=== PATIENT | male | born 1995 | race Caucasian/White ===

== ENCOUNTER 2017-05-14 22:26 | Emergency (ER) | payer OTHER ==
[~2017-05-14] VITALS: Ht 175.3 cm; Wt 88.2 kg
[2017-05-14 22:32] VITALS: TEMP 36.8; Ht 175.3 cm; Wt 88.2 kg
[2017-05-14] MEDS ORDERED: XYLOCAINE 1%/SOD BICARB 20 ML VIAL INFIL ONE (22:39)
[2017-05-14] MEDS ORDERED: LIDOCAINE/EPINEPHRINE 1% 20 ML VIAL INFIL ONE (22:45)
--- NOTE | 2017-05-14 22:53 | EMERGENCY ROOM VISIT NOTE ---
ED Visit Note First contact with patient: 22:34 CHIEF COMPLAINT: Left buttock laceration HISTORY OF PRESENT ILLNESS: This 21-year-old patient presents to the emergency department with friend after cutting the left buttock when he fell skiing. The bleeding has not stopped. Denies weakness or numbness of the extremity. patient has full range of motion of the extremity The patient rates the pain as mild and 2/10. The patient denies any other injuries. The patient's tetanus shot is up to date. REVIEW OF SYSTEMS: A 6 system review of systems was completed with positives and pertinent negatives listed in the HPI. ALLERGIES: None MEDICATIONS: None PMH: None SOCIAL HISTORY: No drug use PHYSICAL EXAM: Vital Signs: Reviewed Nurse's notes, vital signs stable. GENERAL : Pleasant male, in no acute distress, well developed, well nourished. SKIN: There is a 4 cm long laceration on the left buttock. The edges gape apart with traction. There is no foreign material in the wound and it looks clean. There is minimal bleeding. No deep structures such as tendons, bones, or significant blood vessels are seen in the base of the wound. Extension and flexion of the left leg extremity is full and strong. Full range of motion of the extremity. Capillary refill less than 2 seconds. Normal sensation to light and sharp touch. EMERGENCY DEPARTMENT COURSE: I examined the patient. Using sterile technique the wound was cleansed with Betadine. 4 ml of 1% buffered lidocaine with epi was used to anesthetize the patient. The area was sterilely draped. Once the patient was anesthetized, the wound was copiously irrigated under pressure with sterile saline. The wound was explored and there were no deep structures injured. The laceration was repaired using 13 romeo. The patient tolerated the procedure well. Hemostasis was achieved. The area was cleaned with sterile saline and dressed with bacitracin ointment and bandage. The patient was discharged home in good condition. Differential diagnosis includes laceration, tendon injury, vascular injury and other etiologies were considered. DIAGNOSIS: Left buttock laceration DISCHARGE INSTRUCTIONS & TREATMENT: As below Vital Signs Date Time Temp Pulse Resp B/P (MAP) Pulse Ox O2 Delivery O2 Flow Rate FiO2 05/14/17 22:32 36.8 97 18 133/68 97 Room Air Departure Information Impression Primary Impression: Laceration of left buttock Dispostion Home / Self-Care Condition GOOD Forms HOME CARE DOCUMENTATION FORM, IMPORTANT VISIT INFORMATION Patient Instructions My [facility], ED Laceration All Additional Instructions Keep wound clean and dry. No water on the area for 12-24 hrs then no soaking until romeo removed. Do not allow any crusting or dried blood to accumulate on romeo. If this occurs, use a 1:1 solution of hydrogen peroxide/water on a Q-tip to clean the wound. Use an antibiotic ointment for 3-4 days, then let wound dry. Staple removal in 10-12 days. Return sooner for any signs of infection (increasing redness, swelling, drainage). Ice and elevate for swelling and pain. Tylenol 1000 mg or Motrin 600mg every 6 hrs for pain. Keep covered when in sun until romeo removed then SPF 50 or higher for one year. Vitamin E oil if desired two weeks after staple removal for reduction of scar.
[2017-05-14 23:08] VITALS: BP 137/79; PULSE 96; O2SAT 95
== END 2017-05-14 23:08 | disposition home or self-care (01) ==
LOC: C.EDB 22:28
DX: S31.821A Laceration without foreign body of left buttock, initial encounter (principal); Y93.23 Activity, snow (alpine) (downhill) skiing, snowboarding, sledding, tobogganing and snow tubing; W19.XXXA Unspecified fall, initial encounter